=== PATIENT | male | born 1945 | race Caucasian/White ===

== ENCOUNTER 2018-04-11 10:46 | Emergency (ER) | payer BC, OTHER ==
[~2018-04-11] VITALS: Ht 182.9 cm; Wt 78.4 kg
[~2018-04-11 10:46] MED LIST: ACETAMINOPHN-T1 EACH PO; BIOTIN10 MG PO; DICYCLOMINE HCL10 MG PO; DICYCLOMINE HCL20 MG PO; FIBER500 MG PO; LATANOPROST2.5 ML LEFT EYE; LIALDA1.2 GM PO; NOHOMEMEDS; PEPTO BISMOL240 ML PO; TESTOSTERONE60 GM TD; TIMOLOL MALEATE15 M1 LEFT EYE
[2018-04-11 11:26] LABS: HEMATOCRIT 37.6 % (38.0-50.0); HEMOGLOBIN 13.3 G/DL (12.5-16.6); MCH 33.2 PG (29.0-34.0); MCHC 35.4 G/DL (30.0-36.0); MCV 93.8 FL (86-99); PLATELET COUNT 267 K/uL (156-360); RBC DIS.WIDTH-CV 12.8 % (11.8-14.6); RBC DIS.WIDTH-SD 43.9 % (39-53); RED BLOOD COUNT 4.01 M/uL (4.00-5.50); WHITE BLOOD COUNT 3.9 K/uL (4.1-10.2)
[2018-04-11 11:36] LABS: ALBUMIN 3.9 g/dL (3.2-4.8); CHLORIDE 105 mEq/L (99-109); POTASSIUM 3.9 mEq/L (3.7-5.4); SODIUM 138 mEq/L (136-147)
[2018-04-11 11:38] LABS: GLUCOSE 86 mg/dL (70-99)
[2018-04-11 11:39] LABS: TOTAL PROTEIN 8.5 g/dL (6.4-8.3)
[2018-04-11 11:40] LABS: TOTAL BILIRUBIN 0.6 mg/dL (0.0-1.0)
[2018-04-11 11:42] LABS: ALKALINE PHOSPHATASE 73 IU/L (3-129); GFR ESTIMATE (CALCULATED) > 59 mL/min/ (58.99-99999)
[2018-04-11 11:43] LABS: UREA NITROGEN (BUN) 15 mg/dL (9-23)
[2018-04-11 11:44] LABS: AST (GOT) 14 IU/L (2-34)
[2018-04-11 11:45] LABS: ALT (GPT) 11 IU/L (3-49); LIPASE 19 U/L (1.0-51.0)
[2018-04-11 15:27] LABS: APPEARANCE CLEAR ((CLEAR)); BILIRUBIN NEGATIVE; BLOOD NEGATIVE; COLOR COLORLESS ((YELLOW)); GLUCOSE (STRIP) NEGATIVE; KETONES NEGATIVE; LEUKOCYTES NEGATIVE; NITRITE NEGATIVE; PROTEIN (STRIP) NEGATIVE; SPECIFIC GRAVITY 1.006 (1.000-1.030); UCUL ADDED? NO; UROBILINOGEN 0.2 MG/DL (0.2-1.0)
[2018-04-11] MEDS ORDERED: FLAGYL500 MG PO (16:45)
[2018-04-11] MEDS ORDERED: CIPRO500 MG PO (16:45)
[2018-04-11 17:23] VITALS: BP 142/78
== END 2018-04-11 17:25 | disposition home or self-care (01) ==
LOC: EME 10:46
DX: K57.32 Diverticulitis of large intestine without perforation or abscess without bleeding (principal); R00.1 Bradycardia, unspecified; I10 Essential (primary) hypertension
CPT/HCPCS: 74177; 80053; 81003; 83690; 85027; 93005; 99281; 99285; J7040